=== PATIENT | male | born 1965 | race Caucasian/White ===

== ENCOUNTER 2019-10-25 13:14 | Inpatient (IN) | payer OTHER ==
--- NOTE | 2019-10-25 16:36 | BHS.RME ---
Substance Use & Tx History - Substance Use History Opiates (Heroin) Substance amount: 8-10 bags Frequency of use: Daily Substance route: Injection (ex: intravenous or skin popping) Date of Last Use: 10/24/19 ( 8 pm) Cocaine (Powder) Substance amount: 5-6 bags Frequency of use: Daily Substance route: Injection (ex: intravenous or skin popping) - Last Treatment Treatment type: Substance Use Disorder ([facility]) Where was last treatment: [facility] ([facility]) Physical/Psych/Mental Status - Behavior Eye Contact: Normal - Cooperativeness Cooperativeness: Cooperative - Physical Health Problems Is patient presently having any pain?: Yes (Body pain r/t withdrawal) Does patient presently have any injuries (include location): No Does patient currently have a fever: No COWS - Scale Resting Pulse: 1= [place] 81-100 Sweatin=Flushed/Facial Moisture Restless Observation: 1= Difficult to Sit Still Pupil Size: 2= Moderately Dilated (Pupils = 3 mm) Bone or Joint Aches: 2= Severe Diffuse Aches Runny Nose/ Eye Tearin= Nasal Congestion GI Upset > 30mins: 2= Nausea/Diarrhea (w/o diarrhea) Tremor Observation: 2= Slight Tremor Visible Yawning Observation: 0= None Anxiety or Irritability: 1=Feels Anxious/Irritable Goose Flesh Skin: 0=Smooth Skin COWS Score: 14
[2019-10-25 16:57] VITALS: BMI 22.2
--- NOTE | 2019-10-25 17:24 | HP ---
COWS - Scale Resting Pulse: 1= [place] 81-100 Sweatin=Flushed/Facial Moisture Restless Observation: 1= Difficult to Sit Still Pupil Size: 2= Moderately Dilated (Pupils = 3 mm) Bone or Joint Aches: 2= Severe Diffuse Aches Runny Nose/ Eye Tearin= Nasal Congestion GI Upset > 30mins: 2= Nausea/Diarrhea (w/o diarrhea) Tremor Observation: 2= Slight Tremor Visible Yawning Observation: 0= None Anxiety or Irritability: 1=Feels Anxious/Irritable Goose Flesh Skin: 0=Smooth Skin COWS Score: 14 CIWA Score - Admission Criteria [facility] Guidelines: Admission for Medically Managed Detox: Requires at least one of the followin. CIWA greater than 12 2. Seizures within the past 24 hours 3. Delirium tremens within the past 24 hours 4. Hallucinations within the past 24 hours 5. Acute intervention needed for co occurring medical disorder 6. Acute intervention needed for co occurring psychiatric disorder 7. Severe withdrawal that cannot be handled at a lower level of care (continued vomiting, continued diarrhea, abnormal vital signs) requiring intravenous medication and/or fluids 8. Admitting History and Physical - Admission Chief Complaint: HEROIN/MAIDA WITHDRAWAL SX History of Present Illness: THIS IS PATIENT'S FIRST TIME ADMISSION TO [facility]. HE PRESENTS WITH HEROIN/MAIDA WITHDRAWAL SX. PATIENT STARTED INJECTING HEROIN/MAIDA AT AGE 19, 18 BAGS DAILY. LAST USE LAST NIGHT. PATIENT DENIES HX SEIZURES, OVERDOSE AND BLACKOUTS. PMH INCLUDES HTN, HIV + (1985)-NONCOMPLIANT WITH TREATMENT (3 WEEKS AGO) AND HEP C ( TREATED). PATIENT DENIES HX OF MENTAL ILLNESS, NO SI/HI OR SUICIDE ATTEMPTS REPORTED. NEGATIVE LEGAL HX. HOUSING, LIVES ALONE IN [place], [place]. History Source: Patient Limitations to Obtaining History: No Limitations - Past Medical History Cardiovascular: Yes: HTN Infectious Disease: Yes: HIV, Other (HEP C (TREATED)) - Past Surgical History Past Surgical History: Yes: None - Smoking History Smoking history: Current every day smoker Have you smoked in the past 12 months: Yes Aproximately how many cigarettes per day: 8 - Alcohol/Substance Use Hx Alcohol Use: No History of Substance Use: reports: Cocaine, Heroin Date of Last Use: 10/24/19 - Social History Usual Living Arrangement: Yes: Alone Do you think of yourself as: Declined to answer ADL: Independent History of Recent Travel: No Admission ROS [facility] Chief Complaint: HEROIN/MAIDA WITHDRAWAL SX Allergies/Adverse Reactions: Allergies Allergy/AdvReac Type Severity Reaction Status Date / Time No Known Allergies Allergy Verified 10/25/19 16:40 History of Present Illness: SEE PREVIOUS PAGE Exam Limitations: No Limitations - Ebola screening Have you traveled outside of the country in the last 21 days: No Have you had contact with anyone from an Ebola affected area: No Have you been sick,other than usual withdrawal symptoms: No Do you have a fever: No - Review of Systems Constitutional: Chills, Unintentional Wgt. Loss EENT: reports: Tearing, Nose Congestion Respiratory: reports: Cough (DRY, INTERMITTENT COUGH) Cardiac: reports: No Symptoms Reported GI: reports: Nausea, Poor Appetite, Poor Fluid Intake, Abdominal cramping : reports: No Symptoms Reported Musculoskeletal: reports: Joint Pain, Muscle Pain Integumentary: reports: Sweating Neuro: reports: Headache, Tremors Endocrine: reports: Unexplained Weight Loss Hematology: reports: No Symptoms Reported Psychiatric: reports: Orientated x3, Anxious Patient History - Patient Medical History Hx Anemia: No Hx Asthma: No Hx Chronic Obstructive Pulmonary Disease (COPD): No Hx Cancer: No Hx Cardiac Disorders: No Hx Congestive Heart Failure: No Hx Hypertension: Yes Hx Hypercholesterolemia: No Hx Pacemaker: No HX Cerebrovascular Accident: No Hx Seizures: No Hx Dementia: No Hx Diabetes: No Hx Gastrointestinal Disorders: No Hx Liver Disease: No Hx Genitourinary Disorders: No Hx Sexually Transmitted Disorders: No Hx Renal Disease (ESRD): No Hx Thyroid Disease: No Hx Human Immunodeficiency Virus (HIV): Yes (NONCOMPLIANT) Hx Hepatitis C: Yes (TREATED) Hx Depression: No Hx Suicide Attempt: No Hx Bipolar Disorder: No Hx Schizophrenia: No - Patient Surgical History Past Surgical History: No Anesthesia Reaction: No - PPD History Previous Implant?: Yes Documented Results: Negative w/o proof Implanted On Prior [facility] Admission?: No PPD to be Administered?: Yes - Smoking Cessation Smoking history: Current every day smoker Have you smoked in the past 12 months: Yes Aproximately how many cigarettes per day: 8 Hx Chewing Tobacco Use: No Initiated information on smoking cessation: Yes 'Breaking Loose' booklet given: 10/25/19 - Substance & Tx. History Hx Alcohol Use: No Hx Substance Use: Yes Substance Use Type: Cocaine, Heroin Hx Substance Use Treatment: Yes - Substances abused Heroin Substance route: Injection Frequency: Daily Amount used: 10 BAGS Age of first use: 19 Date of last use: 10/24/19 Cocaine Substance route: Injection Frequency: Daily Amount used: 6 BAGS Age of first use: 19 Date of last use: 10/24/19 Admission Physical Exam [facility] - Vital Signs Vital Signs: Vital Signs - 24 hr 10/25/19 16:55 Temperature 98.1 F Pulse Rate 83 Respiratory 20 Rate Blood Pressure 180/87 H - Physical General Appearance: Yes: Disheveled, Thin, Tremorous, Sweating, Anxious HEENTM: Yes: EOMI, Hearing grossly Normal, Normocephalic, Normal Voice, KATHY, Pharynx Normal, Nasal Congestion Respiratory: Yes: Chest Non-Tender, Lungs Clear, Normal Breath Sounds, No Respiratory Distress, No Accessory Muscle Use Neck: Yes: No masses,lesions,Nodules, Supple, Trachea in good position Breast: Yes: Breast Exam Deferred Cardiology: Yes: Regular Rhythm, Regular Rate, S1, S2, Other (REPEAT BP DONE MANUALLY AND 164/82) Abdominal: Yes: Normal Bowel Sounds, Non Tender, Soft Genitourinary: Yes: Within Normal Limits Back: Yes: Normal Inspection, Muscle Spasm Musculoskeletal: Yes: full range of Motion, Gait Steady, Back pain, Muscle Pain Extremities: Yes: Normal Inspection, Normal Range of Motion, Non-Tender, Tremors Neurological: Yes: coating machine operator II-XII NML intact, Fully Oriented, Alert, Motor Strength 5/5, Normal Response, Numbness, Other (ANXIOUS) Integumentary: Yes: Normal Color, Warm, Moist Lymphatic: Yes: Within Normal Limits - Diagnostic (1) Opioid dependence with withdrawal Current Visit: Yes Status: Acute (2) Cocaine dependence Current Visit: Yes Status: Chronic Qualifiers: Substance use status: uncomplicated Qualified Code(s): F14.20 - Cocaine dependence, uncomplicated (3) HTN (hypertension) Current Visit: Yes Status: Chronic Qualifiers: Hypertension type: unspecified Qualified Code(s): I10 - Essential (primary ) hypertension (4) HIV positive Current Visit: Yes Status: Chronic Cleared for Admission [facility] - Detox or Rehab [facility] Level of Care: Medically Managed Detox Regimen/Protocol: Methadone Breathalyzer - Breathalyzer Breathalyzer: 0 Urine Drug Screen - Test Device Lot number: [id number] Expiration date: 07/31/21 - Control Is test valid?: Yes - Results Drug screen NEGATIVE: No Urine drug screen results: MAIDA-Cocaine, MOP-Opiates Inpatient Rehab Admission - Rehab Decision to Admit Inpatient rehab admission?: No
[2019-10-25] MEDS ORDERED: guaiFENesin 200 MG/10 ML 10 ML UNIT-DOSE CUPS PO PRN (17:40)
[2019-10-25] MEDS ORDERED: NALOXONE HCL 0.4 MG/ML VIAL IM PRN (17:40)
[2019-10-25] MEDS ORDERED: P-EPHED 60MG/TRIPROLIDI 2.5MG TABLET PO PRN (17:40)
[2019-10-25] MEDS ORDERED: MENTHOL/PHENOL 1 EACH UD MM PRN (17:40)
[2019-10-25] MEDS ORDERED: BISMUTH SUBSALICYLATE 524 MG/30 ML UD PO PRN (17:40)
[2019-10-25] MEDS ORDERED: NICOTINE POLACRILEX 2 MG GUM BUC PRN (17:40)
[2019-10-25] MEDS ORDERED: MAGNESIUM HYDROX 2400MG/30ML ORAL SUSPENSION 30 ML CUP PO PRN (17:40)
[2019-10-25] MEDS ORDERED: ONDANSETRON *ODT* 4 MG TABLET SL PRN (17:40)
[2019-10-25] MEDS ORDERED: ACETAMINOPHEN 325 MG TABLET (FP) PO PRN ×2 (17:40)
[2019-10-25] MEDS ORDERED: MAGNESIUM CITRATE 300 ML BOTTLE PO PRN (17:40)
[2019-10-25] MEDS ORDERED: hydrOXYzine PAMOATE 25 MG CAPSULE (FP) PO PRN (17:40)
[2019-10-25] MEDS ORDERED: MAG HYDROX/AL HYDROX/SIMETH 30 ML UNIT-DOSE CUP PO PRN (17:40)
[2019-10-25] MEDS ORDERED: METHADONE HCL 10 MG TABLET (FOR DETOX USE ONLY) PO ONE (18:00)
[2019-10-25] MEDS ORDERED: diazePAM 5 MG TABLET PO PRN (18:51)
--- NOTE | 2019-10-25 19:43 | PN ---
BHS Progress Note Note: nursing call for elevated BP since admission Vital Signs - 24 hr 10/25/19 10/25/19 16:55 19:35 Temperature 98.1 F 98.3 F Pulse Rate 83 75 Respiratory 20 18 Rate Blood Pressure 180/87 H 182/97 H P : PRN Clonidine
[2019-10-25] MEDS: cloNIDine HCL 0.1 MG TABLET PO PRN (19:57)
[2019-10-25] MEDS: IBUPROFEN 400 MG TABLET (FP) PO PRN (20:12)
[2019-10-25] MEDS: THIAMINE HCL 100 MG TABLET (FP) PO SCH (22:22)
[2019-10-25] MEDS: MINERAL OIL/PETROLAT/WATER TOPICAL CREAM 113 GM JAR TP SCH (22:22)
[2019-10-25] MEDS: MELATONIN 5 MG TABLETS PO PRN (22:23)
[2019-10-25] MEDS: METHOCARBAMOL 500 MG TABLET PO PRN (22:23)
[2019-10-26] MEDS ORDERED: METHADONE HCL 10 MG TABLET (FOR DETOX USE ONLY) ONE (09:30)
[2019-10-26] MEDS ORDERED: METHADONE HCL 5 MG TABLET (FOR DETOX USE ONLY) ONE (09:30)
--- NOTE | 2019-10-26 09:42 | EKG ---
Test Reason : Blood Pressure : / mmHG Vent. Rate : 072 BPM Atrial Rate : 072 BPM P-R Int : 138 ms QRS Dur : 098 ms QT Int : 448 ms P-R-T Axes : 052 065 048 degrees QTc Int : 490 ms NORMAL SINUS RHYTHM VOLTAGE CRITERIA FOR LEFT VENTRICULAR HYPERTROPHY PROLONGED QT ABNORMAL ECG NO PREVIOUS ECGS AVAILABLE Confirmed by Thomas Hand MD ([id number]) on 10/26/2019 9:42:24 AM Referred By: Confirmed By:Thomas Hand MD
[2019-10-26] MEDS ORDERED: LISINOPRIL 10 MG TABLET (FP) PO SCH (10:00)
[2019-10-26] MEDS ORDERED: METHADONE (DETOX) 20 MG, METHADONE (DETOX) 5 MG PO ONE (10:00)
[2019-10-26 10:03] LABS: HEMATOCRIT 41.6 % (35.4-49); HEMOGLOBIN 14.1 GM/dL (11.7-16.9); MCH 31.5 pg (25.7-33.7); MCHC 33.9 g/dl (32.0-35.9); MEAN PLT VOLUME 10.3 fl (7.5-11.1); PLATELET COUNT 169 K/MM3 (134-434); RBC 4.48 M/mm3 (4.00-5.60); RDW 14.1 % (11.9-15.9); WHITE BLOOD COUNT 4.7 K/mm3 (4.0-10.0)
[2019-10-26 10:14] LABS: ALBUMIN 3.1 g/dl (3.4-5.0); BILIRUBIN,TOTAL 0.2 mg/dL (0.2-1); BLOOD UREA NITROGEN 13.9 mg/dL (7-18); CALCIUM 8.8 mg/dL (8.5-10.1); CREATININE 0.8 mg/dL (0.55-1.3); POTASSIUM 3.7 mmol/L (3.5-5.1); TOT PROT 6.5 g/dl (6.4-8.2)
[2019-10-26] MEDS: MINERAL OIL/PETROLAT/WATER TOPICAL CREAM 113 GM JAR TP SCH ×2 (10:18→22:28)
[2019-10-26] MEDS: PRENATAL VITAMINS W/ FOLIC ACID TABLET (FP) PO SCH (10:18)
[2019-10-26] MEDS: NICOTINE 14 MG/24 HOURS TOPICAL PATCH TD SCH (10:19)
[2019-10-26] MEDS: IBUPROFEN 400 MG TABLET (FP) PO PRN ×2 (10:21→22:27)
[2019-10-26] MEDS ORDERED: FLU VACCINE QUAD 60 MCG/0.5 ML (MDV 19-20) IM ONE (12:00)
--- NOTE | 2019-10-26 13:27 | PN ---
BHS COWS - Scale Resting Pulse: 0= [place] 80 or Below Sweatin= Chills/Flushing Restless Observation: 0= Sits Still Pupil Size: 1= Pupils >than Normal Bone or Joint Aches: 1= Mild Discomfort Runny Nose/ Eye Tearin= Nasal Congestion GI Upset > 30mins: 1= Stomach Cramp Tremor Observation of Outstretched Hands: 1= Tremor [place], Not Seen Yawning Observation: 0= None Anxiety or Irritability: 2=Irritable/Anxious Goose Flesh Skin: 3=Piloerection COWS Score: 11 BHS Progress Note (SOAP) Subjective: 54 years old male admitted on 10/25/19 for opiate withdrawal sx management treating with methadone detox regiment reports long history of hypertension taking unknown medication begin lisinopril 10 mg po od increased to bid addition to amlodipine 5 mg po daily patient reports that he is HIV and taking Genvoya junior underwriter call [phone] taking Genvoya since 05/2018 last filled 09/13/19 according to the preferred pharmacist that different prescribers through out the years encourage the patient return to primary care infectious disease provider for continuity of care qtc 490 discontinue zofran Objective: 10/26/19 15:47 Vital Signs Temperature 96.2 F L 10/26/19 15:01 Pulse Rate 64 10/26/19 15:01 Respiratory Rate 18 10/26/19 15:01 Blood Pressure 141/82 10/26/19 15:01 O2 Sat by Pulse Oximetry (%) Laboratory Last Values WBC 4.7 K/mm3 (4.0-10.0) 10/26/19 07:30 RBC 4.48 M/mm3 (4.00-5.60) 10/26/19 07:30 Hgb 14.1 GM/dL (11.7-16.9) 10/26/19 07:30 Hct 41.6 % (35.4-49) 10/26/19 07:30 MCV 93.0 fl (80-96) 10/26/19 07:30 MCH 31.5 pg (25.7-33.7) 10/26/19 07:30 MCHC 33.9 g/dl (32.0-35.9) 10/26/19 07:30 RDW 14.1 % (11.9-15.9) 10/26/19 07:30 Plt Count 169 K/MM3 (134-434) 10/26/19 07:30 MPV 10.3 fl (7.5-11.1) 10/26/19 07:30 Sodium 143 mmol/L (136-145) 10/26/19 07:30 Potassium 3.7 mmol/L (3.5-5.1) 10/26/19 07:30 Chloride 108 mmol/L (98-107) H 10/26/19 07:30 Carbon Dioxide 27 mmol/L (21-32) 10/26/19 07:30 Anion Gap 7 MMOL/L (8-16) L 10/26/19 07:30 BUN 13.9 mg/dL (7-18) 10/26/19 07:30 Creatinine 0.8 mg/dL (0.55-1.3) 10/26/19 07:30 Est GFR (CKD-EPI)AfAm 118.20 10/26/19 07:30 Est GFR (CKD-EPI)NonAf 101.99 10/26/19 07:30 Random Glucose 156 mg/dL (74-106) H 10/26/19 07:30 Calcium 8.8 mg/dL (8.5-10.1) 10/26/19 07:30 Total Bilirubin 0.2 mg/dL (0.2-1) 10/26/19 07:30 AST 21 U/L (15-37) 10/26/19 07:30 ALT 30 U/L (13-61) 10/26/19 07:30 Alkaline Phosphatase 107 U/L (45-117) 10/26/19 07:30 Total Protein 6.5 g/dl (6.4-8.2) 10/26/19 07:30 Albumin 3.1 g/dl (3.4-5.0) L 10/26/19 07:30 RPR Titer Nonreactive (NONREACTIVE) 10/26/19 07:30 lab noted fasting glucose 10/26/19 15:48 bp elevation begin amlodipine and increase lisinopril Assessment: 10/26/19 15:49 opiate withdrawal 10/26/19 15:49 Plan: methadone regiment
[2019-10-26] MEDS: cloNIDine HCL 0.1 MG TABLET PO PRN (13:36)
[2019-10-26] MEDS ORDERED: cloNIDine HCL 0.1 MG TABLET PO PRN (14:56)
[2019-10-26] MEDS: amLODIPine BESYLATE 5 MG TABLET (FP) PO SCH (17:04)
[2019-10-26] MEDS: THIAMINE HCL 100 MG TABLET (FP) PO SCH (22:18)
[2019-10-26] MEDS: LISINOPRIL 10 MG TABLET (FP) PO SCH (22:18)
[2019-10-26] MEDS: MELATONIN 5 MG TABLETS PO PRN (22:20)
[2019-10-27] MEDS ORDERED: METHADONE HCL 10 MG TABLET (FOR DETOX USE ONLY) PO ONE (10:00)
[2019-10-27] MEDS: PRENATAL VITAMINS W/ FOLIC ACID TABLET (FP) PO SCH (10:20)
[2019-10-27] MEDS: MINERAL OIL/PETROLAT/WATER TOPICAL CREAM 113 GM JAR TP SCH ×2 (10:20→22:17)
[2019-10-27] MEDS: LISINOPRIL 10 MG TABLET (FP) PO SCH ×2 (10:20→22:15)
[2019-10-27] MEDS: IBUPROFEN 400 MG TABLET (FP) PO PRN ×2 (10:22→22:16)
[2019-10-27] MEDS: NICOTINE 14 MG/24 HOURS TOPICAL PATCH TD SCH (10:23)
[2019-10-27] MEDS: amLODIPine BESYLATE 5 MG TABLET (FP) PO SCH (15:34)
--- NOTE | 2019-10-27 15:53 | PN ---
BHS COWS - Scale Resting Pulse: 0= [place] 80 or Below Sweatin= Chills/Flushing Restless Observation: 0= Sits Still Pupil Size: 1= Pupils >than Normal Bone or Joint Aches: 1= Mild Discomfort Runny Nose/ Eye Tearin= Nasal Congestion GI Upset > 30mins: 1= Stomach Cramp Tremor Observation of Outstretched Hands: 2= Slight Tremor Visible Yawning Observation: 0= None Anxiety or Irritability: 2=Irritable/Anxious Goose Flesh Skin: 0=Smooth Skin COWS Score: 9 BHS Progress Note (SOAP) Subjective: 54 years old male admitted on 10/25/19 for opiate withdrawal sx management treating with methadone detox regiment requests ensure for nutrition supplement Objective: 10/27/19 15:53 Vital Signs Temperature 97.6 F 10/27/19 12:37 Pulse Rate 64 10/27/19 12:37 Respiratory Rate 18 10/27/19 12:37 Blood Pressure 129/71 10/27/19 12:37 O2 Sat by Pulse Oximetry (%) Laboratory Last Values WBC 4.7 K/mm3 (4.0-10.0) 10/26/19 07:30 RBC 4.48 M/mm3 (4.00-5.60) 10/26/19 07:30 Hgb 14.1 GM/dL (11.7-16.9) 10/26/19 07:30 Hct 41.6 % (35.4-49) 10/26/19 07:30 MCV 93.0 fl (80-96) 10/26/19 07:30 MCH 31.5 pg (25.7-33.7) 10/26/19 07:30 MCHC 33.9 g/dl (32.0-35.9) 10/26/19 07:30 RDW 14.1 % (11.9-15.9) 10/26/19 07:30 Plt Count 169 K/MM3 (134-434) 10/26/19 07:30 MPV 10.3 fl (7.5-11.1) 10/26/19 07:30 Sodium 143 mmol/L (136-145) 10/26/19 07:30 Potassium 3.7 mmol/L (3.5-5.1) 10/26/19 07:30 Chloride 108 mmol/L (98-107) H 10/26/19 07:30 Carbon Dioxide 27 mmol/L (21-32) 10/26/19 07:30 Anion Gap 7 MMOL/L (8-16) L 10/26/19 07:30 BUN 13.9 mg/dL (7-18) 10/26/19 07:30 Creatinine 0.8 mg/dL (0.55-1.3) 10/26/19 07:30 Est GFR (CKD-EPI)AfAm 118.20 10/26/19 07:30 Est GFR (CKD-EPI)NonAf 101.99 10/26/19 07:30 Random Glucose 156 mg/dL (74-106) H 10/26/19 07:30 Fasting Glucose 111 mg/dL (74-106) H 10/27/19 08:00 Calcium 8.8 mg/dL (8.5-10.1) 10/26/19 07:30 Total Bilirubin 0.2 mg/dL (0.2-1) 10/26/19 07:30 AST 21 U/L (15-37) 10/26/19 07:30 ALT 30 U/L (13-61) 10/26/19 07:30 Alkaline Phosphatase 107 U/L (45-117) 10/26/19 07:30 Total Protein 6.5 g/dl (6.4-8.2) 10/26/19 07:30 Albumin 3.1 g/dl (3.4-5.0) L 10/26/19 07:30 RPR Titer Nonreactive (NONREACTIVE) 10/26/19 07:30 lab noted Assessment: 10/27/19 15:53 opiate withdrawal Plan: methadone regiment
[2019-10-27] MEDS: THIAMINE HCL 100 MG TABLET (FP) PO SCH (22:15)
[2019-10-27] MEDS: MELATONIN 5 MG TABLETS PO PRN (22:17)
[2019-10-28] MEDS ORDERED: METHADONE HCL 10 MG TABLET (FOR DETOX USE ONLY) ONE (09:33)
[2019-10-28] MEDS ORDERED: METHADONE HCL 5 MG TABLET (FOR DETOX USE ONLY) ONE (09:34)
[2019-10-28] MEDS ORDERED: METHADONE (DETOX) 10 MG, METHADONE (DETOX) 5 MG PO ONE (10:00)
[2019-10-28] MEDS: METHOCARBAMOL 500 MG TABLET PO PRN ×2 (10:09→22:12)
[2019-10-28] MEDS: PRENATAL VITAMINS W/ FOLIC ACID TABLET (FP) PO SCH (10:09)
[2019-10-28] MEDS: LISINOPRIL 10 MG TABLET (FP) PO SCH ×2 (10:09→22:11)
[2019-10-28] MEDS: NICOTINE 14 MG/24 HOURS TOPICAL PATCH TD SCH (10:10)
[2019-10-28] MEDS: MINERAL OIL/PETROLAT/WATER TOPICAL CREAM 113 GM JAR TP SCH ×2 (10:10→22:11)
[2019-10-28] MEDS: IBUPROFEN 400 MG TABLET (FP) PO PRN ×2 (10:11→18:11)
[2019-10-28] MEDS ORDERED: amLODIPine BESYLATE 10 MG TABLET (FP) PO ONE (15:27)
--- NOTE | 2019-10-28 15:29 | PN ---
BHS COWS - Scale Resting Pulse: 0= [place] 80 or Below Sweatin= Chills/Flushing Restless Observation: 0= Sits Still Pupil Size: 1= Pupils >than Normal Bone or Joint Aches: 1= Mild Discomfort Runny Nose/ Eye Tearin= Nasal Congestion GI Upset > 30mins: 0= None Tremor Observation of Outstretched Hands: 1= Tremor [place], Not Seen Yawning Observation: 0= None Anxiety or Irritability: 2=Irritable/Anxious Goose Flesh Skin: 0=Smooth Skin COWS Score: 7 BHS Progress Note (SOAP) Subjective: 54 years old male admitted on 10/25/19 for opiate withdrawal sx management treating with methadone detox regiment Vital Signs Temperature 97.0 F L 10/28/19 12:35 Pulse Rate 66 10/28/19 12:35 Respiratory Rate 18 10/28/19 12:35 Blood Pressure 140/75 10/28/19 12:35 O2 Sat by Pulse Oximetry (%) bp elevation increase amlodipine to 10 mg po daily and continue lisinopril 10 mg po bid Objective: 10/28/19 15:30opiate withdrawal Laboratory Last Values WBC 4.7 K/mm3 (4.0-10.0) 10/26/19 07:30 RBC 4.48 M/mm3 (4.00-5.60) 10/26/19 07:30 Hgb 14.1 GM/dL (11.7-16.9) 10/26/19 07:30 Hct 41.6 % (35.4-49) 10/26/19 07:30 MCV 93.0 fl (80-96) 10/26/19 07:30 MCH 31.5 pg (25.7-33.7) 10/26/19 07:30 MCHC 33.9 g/dl (32.0-35.9) 10/26/19 07:30 RDW 14.1 % (11.9-15.9) 10/26/19 07:30 Plt Count 169 K/MM3 (134-434) 10/26/19 07:30 MPV 10.3 fl (7.5-11.1) 10/26/19 07:30 Sodium 143 mmol/L (136-145) 10/26/19 07:30 Potassium 3.7 mmol/L (3.5-5.1) 10/26/19 07:30 Chloride 108 mmol/L (98-107) H 10/26/19 07:30 Carbon Dioxide 27 mmol/L (21-32) 10/26/19 07:30 Anion Gap 7 MMOL/L (8-16) L 10/26/19 07:30 BUN 13.9 mg/dL (7-18) 10/26/19 07:30 Creatinine 0.8 mg/dL (0.55-1.3) 10/26/19 07:30 Est GFR (CKD-EPI)AfAm 118.20 10/26/19 07:30 Est GFR (CKD-EPI)NonAf 101.99 10/26/19 07:30 Random Glucose 156 mg/dL (74-106) H 10/26/19 07:30 Fasting Glucose 111 mg/dL (74-106) H 10/27/19 08:00 Calcium 8.8 mg/dL (8.5-10.1) 10/26/19 07:30 Total Bilirubin 0.2 mg/dL (0.2-1) 10/26/19 07:30 AST 21 U/L (15-37) 10/26/19 07:30 ALT 30 U/L (13-61) 10/26/19 07:30 Alkaline Phosphatase 107 U/L (45-117) 10/26/19 07:30 Total Protein 6.5 g/dl (6.4-8.2) 10/26/19 07:30 Albumin 3.1 g/dl (3.4-5.0) L 10/26/19 07:30 RPR Titer Nonreactive (NONREACTIVE) 10/26/19 07:30 lab noted Assessment: 10/28/19 15:31 opiate withdrawal Plan: methadone regiment
[2019-10-28] MEDS: amLODIPine BESYLATE 5 MG TABLET (FP) PO SCH (15:46)
--- NOTE | 2019-10-28 17:57 | PN ---
S Progress Note Note: call form nursing re: elevated BP Vital Signs - 24 hr 10/27/19 10/28/19 10/28/19 21:30 00:42 03:30 Temperature 97.4 F L Pulse Rate 69 Respiratory 18 18 16 Rate Blood Pressure 169/93 10/28/19 10/28/19 10/28/19 06:34 08:41 12:35 Temperature 97.5 F L 97.7 F 97.0 F L Pulse Rate 58 L 68 66 Respiratory 18 18 18 Rate Blood Pressure 152/82 161/77 140/75 10/28/19 16:47 Temperature 98.1 F Pulse Rate 68 Respiratory 17 Rate Blood Pressure 165/89 P : Clonidine 0.1 mg x once
[2019-10-28] MEDS ORDERED: cloNIDine HCL 0.1 MG TABLET PO ONE (18:15)
[2019-10-28] MEDS: THIAMINE HCL 100 MG TABLET (FP) PO SCH (22:11)
[2019-10-28] MEDS: MELATONIN 5 MG TABLETS PO PRN (22:11)
[2019-10-29] MEDS: METHOCARBAMOL 500 MG TABLET PO PRN ×2 (09:42→22:13)
[2019-10-29] MEDS: LISINOPRIL 10 MG TABLET (FP) PO SCH ×2 (09:42→22:12)
[2019-10-29] MEDS: PRENATAL VITAMINS W/ FOLIC ACID TABLET (FP) PO SCH (09:42)
[2019-10-29] MEDS: MINERAL OIL/PETROLAT/WATER TOPICAL CREAM 113 GM JAR TP SCH ×2 (09:43→22:12)
[2019-10-29] MEDS: IBUPROFEN 400 MG TABLET (FP) PO PRN (09:43)
[2019-10-29] MEDS: NICOTINE 14 MG/24 HOURS TOPICAL PATCH TD SCH (09:45)
[2019-10-29] MEDS ORDERED: METHADONE HCL 10 MG TABLET (FOR DETOX USE ONLY) PO ONE (10:00)
--- NOTE | 2019-10-29 10:40 | PN ---
S CIWA - CIWA Score Agitation: 2 Paroxysmal Sweats: 2 BHS COWS - Scale Resting Pulse: 0= [place] 80 or Below Sweatin=Flushed/Facial Moisture Restless Observation: 0= Sits Still Pupil Size: 0= Normal to Room Light Bone or Joint Aches: 1= Mild Discomfort Runny Nose/ Eye Tearin= None GI Upset > 30mins: 0= None Tremor Observation of Outstretched Hands: 0= None Yawning Observation: 0= None Anxiety or Irritability: 1=Feels Anxious/Irritable Goose Flesh Skin: 0=Smooth Skin COWS Score: 4 BHS Progress Note (SOAP) Subjective: Pt complains of cough, green phlegm, right lower lid swollen Objective: 10/29/19 10:38 Laboratory Tests 10/26/19 10/26/19 10/26/19 07:30 07:30 07:30 WBC 4.7 RBC 4.48 Hgb 14.1 Hct 41.6 MCV 93.0 MCH 31.5 MCHC 33.9 RDW 14.1 Plt Count 169 MPV 10.3 Sodium 143 Potassium 3.7 Chloride 108 H Carbon Dioxide 27 Anion Gap 7 L BUN 13.9 Creatinine 0.8 Est GFR (CKD-EPI)AfAm 118.20 Est GFR (CKD-EPI)NonAf 101.99 Random Glucose 156 H Fasting Glucose Calcium 8.8 Total Bilirubin 0.2 AST 21 ALT 30 Alkaline Phosphatase 107 Total Protein 6.5 Albumin 3.1 L RPR Titer Nonreactive 10/27/19 08:00 WBC RBC Hgb Hct MCV MCH MCHC RDW Plt Count MPV Sodium Potassium Chloride Carbon Dioxide Anion Gap BUN Creatinine Est GFR (CKD-EPI)AfAm Est GFR (CKD-EPI)NonAf Random Glucose Fasting Glucose 111 H Calcium Total Bilirubin AST ALT Alkaline Phosphatase Total Protein Albumin RPR Titer Vital Signs Temperature 97.6 F 10/29/19 08:35 Pulse Rate 70 10/29/19 08:35 Respiratory Rate 18 10/29/19 08:35 Blood Pressure 127/68 10/29/19 08:35 O2 Sat by Pulse Oximetry (%) PE gnl: WDWN, in no distress HEENT: slight right lower lid redness, nl conjunctiva, no discharge Mental status: awake, alert Motor; nl Gait: nl Assessment: WBC 4.7 K/mm3 (4.0-10.0) 10/26/19 07:30 RBC 4.48 M/mm3 (4.00-5.60) 10/26/19 07:30 Hgb 14.1 GM/dL (11.7-16.9) 10/26/19 07:30 Hct 41.6 % (35.4-49) 10/26/19 07:30 MCV 93.0 fl (80-96) 10/26/19 07:30 MCH 31.5 pg (25.7-33.7) 10/26/19 07:30 MCHC 33.9 g/dl ( 10/29/19 10:42 1. Opoid use disorder 2. HIV positive 3. Hep c tx 4. mild errythema right lower llid, no sign of infection 5. complaints of cough Plan: 1. continue methadone withdrawal protocol 2. warm compress to right eye/lid 3. Robitussin prn
[2019-10-29 11:21] LABS: URINE APPEARANCE CLEAR; URINE BILIRUBIN NEGATIVE (NEGATIVE); URINE COLOR YELLOW; URINE GLUCOSE (UA) NEGATIVE (NEGATIVE); URINE KETONE NEGATIVE (NEGATIVE); URINE LEUK ESTERASE NEGATIVE (NEGATIVE); URINE NITRITE NEGATIVE (NEGATIVE); URINE PROTEIN NEGATIVE (NEGATIVE); URINE UROBILINOGEN 0.2 mg/dL (0.2-1.0)
[2019-10-29] MEDS: amLODIPine BESYLATE 10 MG TABLET (FP) PO SCH (16:37)
[2019-10-29] MEDS: THIAMINE HCL 100 MG TABLET (FP) PO SCH (22:12)
[2019-10-29] MEDS: MELATONIN 5 MG TABLETS PO PRN (22:12)
[2019-10-30] MEDS ORDERED: METHADONE HCL 5 MG TABLET (FOR DETOX USE ONLY) PO ONE (06:00)
[2019-10-30] MEDS: NICOTINE 14 MG/24 HOURS TOPICAL PATCH TD SCH (10:51)
[2019-10-30] MEDS: LISINOPRIL 10 MG TABLET (FP) PO SCH (10:52)
[2019-10-30] MEDS: PRENATAL VITAMINS W/ FOLIC ACID TABLET (FP) PO SCH (10:52)
[2019-10-30] MEDS: MINERAL OIL/PETROLAT/WATER TOPICAL CREAM 113 GM JAR TP SCH (10:53)
[2019-10-30] MEDS: IBUPROFEN 400 MG TABLET (FP) PO PRN (10:54)
--- NOTE | 2019-10-30 13:57 | PN ---
BHS COWS - Scale Resting Pulse: 0= [place] 80 or Below Sweatin= No chills or Flushing Restless Observation: 0= Sits Still Pupil Size: 0= Normal to Room Light Bone or Joint Aches: 1= Mild Discomfort Runny Nose/ Eye Tearin= None GI Upset > 30mins: 0= None Tremor Observation of Outstretched Hands: 0= None Yawning Observation: 0= None Anxiety or Irritability: 1=Feels Anxious/Irritable Goose Flesh Skin: 0=Smooth Skin COWS Score: 2 BHS Progress Note (SOAP) Subjective: c/o mild withdrawal symptoms. Objective: 10/30/19 13:53 Vital Signs 10/30/19 10/30/19 10/30/19 06:57 08:40 12:32 Temperature 97.3 F L 98.5 F 98.8 F Pulse Rate 65 73 74 Respiratory 16 18 18 Rate Blood Pressure 136/76 150/76 150/83 Laboratory Last Values WBC 4.7 K/mm3 (4.0-10.0) 10/26/19 07:30 RBC 4.48 M/mm3 (4.00-5.60) 10/26/19 07:30 Hgb 14.1 GM/dL (11.7-16.9) 10/26/19 07:30 Hct 41.6 % (35.4-49) 10/26/19 07:30 MCV 93.0 fl (80-96) 10/26/19 07:30 MCH 31.5 pg (25.7-33.7) 10/26/19 07:30 MCHC 33.9 g/dl (32.0-35.9) 10/26/19 07:30 RDW 14.1 % (11.9-15.9) 10/26/19 07:30 Plt Count 169 K/MM3 (134-434) 10/26/19 07:30 MPV 10.3 fl (7.5-11.1) 10/26/19 07:30 Sodium 143 mmol/L (136-145) 10/26/19 07:30 Potassium 3.7 mmol/L (3.5-5.1) 10/26/19 07:30 Chloride 108 mmol/L (98-107) H 10/26/19 07:30 Carbon Dioxide 27 mmol/L (21-32) 10/26/19 07:30 Anion Gap 7 MMOL/L (8-16) L 10/26/19 07:30 BUN 13.9 mg/dL (7-18) 10/26/19 07:30 Creatinine 0.8 mg/dL (0.55-1.3) 10/26/19 07:30 Est GFR (CKD-EPI)AfAm 118.20 10/26/19 07:30 Est GFR (CKD-EPI)NonAf 101.99 10/26/19 07:30 Random Glucose 156 mg/dL (74-106) H 10/26/19 07:30 Fasting Glucose 111 mg/dL (74-106) H 10/27/19 08:00 Calcium 8.8 mg/dL (8.5-10.1) 10/26/19 07:30 Total Bilirubin 0.2 mg/dL (0.2-1) 10/26/19 07:30 AST 21 U/L (15-37) 10/26/19 07:30 ALT 30 U/L (13-61) 10/26/19 07:30 Alkaline Phosphatase 107 U/L (45-117) 10/26/19 07:30 Total Protein 6.5 g/dl (6.4-8.2) 10/26/19 07:30 Albumin 3.1 g/dl (3.4-5.0) L 10/26/19 07:30 Urine Color Yellow 10/29/19 08:00 Urine Appearance Clear 10/29/19 08:00 Urine pH 7.0 (5.0-8.0) 10/29/19 08:00 Ur Specific [place] 1.013 (1.010-1.035) 10/29/19 08:00 Urine Protein Negative (NEGATIVE) 10/29/19 08:00 Urine Glucose (UA) Negative (NEGATIVE) 10/29/19 08:00 Urine Ketones Negative (NEGATIVE) 10/29/19 08:00 Urine Blood Negative (NEGATIVE) 10/29/19 08:00 Urine Nitrite Negative (NEGATIVE) 10/29/19 08:00 Urine Bilirubin Negative (NEGATIVE) 10/29/19 08:00 Urine Urobilinogen 0.2 mg/dL (0.2-1.0) 10/29/19 08:00 Ur Leukocyte Esterase Negative (NEGATIVE) 10/29/19 08:00 RPR Titer Nonreactive (NONREACTIVE) 10/26/19 07:30 Labs noted. Assessment: 10/30/19 13:53 AOX3 in no acute respiratory distress. Full ROM, ambulating in the unit. Mild withdrawal symptoms. Pt's discharge has been put on hold for tomorrow for bed availability in [facility]. Case discussed with counselor Denise. Plan: Continue prn meds. D/C in AM to Rehab.
[2019-10-30] MEDS: amLODIPine BESYLATE 10 MG TABLET (FP) PO SCH (16:03)
[2019-10-30 17:20] VITALS: BP 122/65; PULSE 71; TEMP 97.9
--- NOTE | 2019-10-30 19:57 | DS ---
[facility] Detox Discharge Summary Admission Date: 10/25/19 Discharge Date: 10/30/19 - History Present History: Cocaine Dependence, Opioid Dependence Additional Comments: Patient was admitted seeking detox for heroin and cocaine disorder. Pertinent Past History: Hx HIV+ and non-compliant w/ treatment. Hx: HTN - Physical Exam Results Vital Signs: Vital Signs Temperature 97.9 F 10/30/19 16:34 Pulse Rate 71 10/30/19 16:34 Respiratory Rate 18 10/30/19 16:34 Blood Pressure 122/65 10/30/19 16:34 O2 Sat by Pulse Oximetry (%) Pertinent Admission Physical Exam Findings: Patient was admitted w/ opioid withdrawal symptoms w/ co-occurring cocaine and nicotine use disorder. Laboratory Last Values WBC 4.7 K/mm3 (4.0-10.0) 10/26/19 07:30 RBC 4.48 M/mm3 (4.00-5.60) 10/26/19 07:30 Hgb 14.1 GM/dL (11.7-16.9) 10/26/19 07:30 Hct 41.6 % (35.4-49) 10/26/19 07:30 MCV 93.0 fl (80-96) 10/26/19 07:30 MCH 31.5 pg (25.7-33.7) 10/26/19 07:30 MCHC 33.9 g/dl (32.0-35.9) 10/26/19 07:30 RDW 14.1 % (11.9-15.9) 10/26/19 07:30 Plt Count 169 K/MM3 (134-434) 10/26/19 07:30 MPV 10.3 fl (7.5-11.1) 10/26/19 07:30 Sodium 143 mmol/L (136-145) 10/26/19 07:30 Potassium 3.7 mmol/L (3.5-5.1) 10/26/19 07:30 Chloride 108 mmol/L (98-107) H 10/26/19 07:30 Carbon Dioxide 27 mmol/L (21-32) 10/26/19 07:30 Anion Gap 7 MMOL/L (8-16) L 10/26/19 07:30 BUN 13.9 mg/dL (7-18) 10/26/19 07:30 Creatinine 0.8 mg/dL (0.55-1.3) 10/26/19 07:30 Est GFR (CKD-EPI)AfAm 118.20 10/26/19 07:30 Est GFR (CKD-EPI)NonAf 101.99 10/26/19 07:30 Random Glucose 156 mg/dL (74-106) H 10/26/19 07:30 Fasting Glucose 111 mg/dL (74-106) H 10/27/19 08:00 Calcium 8.8 mg/dL (8.5-10.1) 10/26/19 07:30 Total Bilirubin 0.2 mg/dL (0.2-1) 10/26/19 07:30 AST 21 U/L (15-37) 10/26/19 07:30 ALT 30 U/L (13-61) 10/26/19 07:30 Alkaline Phosphatase 107 U/L (45-117) 10/26/19 07:30 Total Protein 6.5 g/dl (6.4-8.2) 10/26/19 07:30 Albumin 3.1 g/dl (3.4-5.0) L 10/26/19 07:30 Urine Color Yellow 10/29/19 08:00 Urine Appearance Clear 10/29/19 08:00 Urine pH 7.0 (5.0-8.0) 10/29/19 08:00 Ur Specific [place] 1.013 (1.010-1.035) 10/29/19 08:00 Urine Protein Negative (NEGATIVE) 10/29/19 08:00 Urine Glucose (UA) Negative (NEGATIVE) 10/29/19 08:00 Urine Ketones Negative (NEGATIVE) 10/29/19 08:00 Urine Blood Negative (NEGATIVE) 10/29/19 08:00 Urine Nitrite Negative (NEGATIVE) 10/29/19 08:00 Urine Bilirubin Negative (NEGATIVE) 10/29/19 08:00 Urine Urobilinogen 0.2 mg/dL (0.2-1.0) 10/29/19 08:00 Ur Leukocyte Esterase Negative (NEGATIVE) 10/29/19 08:00 RPR Titer Nonreactive (NONREACTIVE) 10/26/19 07:30 Labs reviewed. - Treatment Hospital Course: Detox Protocol Followed, Detoxed Safely, Responded well, Discharged Condition Good, Rehab Referral Accepted (Patient requested to go to [facility] rehab.) - Medication Discharge Medications: Ambulatory Orders NK [No Known Home Medication] 10/25/19 - Diagnosis (1) Opioid dependence with withdrawal Current Visit: Yes Status: Acute (2) Cocaine dependence Current Visit: Yes Status: Chronic Qualifiers: Substance use status: uncomplicated Qualified Code(s): F14.20 - Cocaine dependence, uncomplicated (3) HIV positive Current Visit: Yes Status: Chronic (4) HTN (hypertension) Current Visit: Yes Status: Chronic Qualifiers: Hypertension type: unspecified Qualified Code(s): I10 - Essential (primary ) hypertension - AMA Did Patient Leave Against Medical Advice: No
== END 2019-10-30 19:42 | disposition other institution (70) | DRG 773 ==
LOC: YASAS 13:14 → Y3N 17:07
PROVIDERS: ADMIT Allergy & Immunology; ATTEND Allergy & Immunology
PROC: HZ2ZZZZ Detoxification Services for Substance Abuse Treatment (ICD-10-PCS; principal; 2019-10-25)
DX: F11.23 Opioid dependence with withdrawal (principal); F14.20 Cocaine dependence, uncomplicated; F17.210 Nicotine dependence, cigarettes, uncomplicated; Z21 Asymptomatic human immunodeficiency virus [HIV] infection status; I10 Essential (primary) hypertension; B18.2 Chronic viral hepatitis C; H57.89 Other specified disorders of eye and adnexa
CPT/HCPCS: 36415; 80053; 81003; 82947; 85027; 86593; 93005; 93010; J0735

== ENCOUNTER 2019-10-30 19:20 | Inpatient (IN) | payer OTHER ==
--- NOTE | 2019-10-30 20:14 | HP ---
[facility] Rehab Assess/Revision - Admission History Admitted to Rehab from: [facility] Date of Admission to Rehab: 10/30/2019 - Findings Detox History & Physical reviewed: Yes (Tolerated opioid withdrawal. Hx Cocaine and nicotine use disorder. ) Concur with findings: Yes Comments/Additional Findings: Hx: HIV+, HTN. Denies depression or thoughts of harming self or others. Inpatient Rehab Admission - Rehab Decision to Admit Inpatient rehab admission?: Yes - Initial Determination Are CD services needed?: Yes Free of communicable disease: Yes Not in need of hospitalization: Yes - Rehab Admission Criteria Previous failed treatment: Yes Poor recovery environment: Yes Comorbidities: Yes Lacks judgement: Yes Patient is meeting Inpatient Rehab admission criteria:: Yes
[2019-10-30] MEDS ORDERED: MAGNESIUM CITRATE 300 ML BOTTLE PO PRN (20:18)
[2019-10-30] MEDS ORDERED: MENTHOL/PHENOL 1 EACH UD MM PRN (20:18)
[2019-10-30] MEDS ORDERED: NICOTINE POLACRILEX 2 MG GUM BUC PRN (20:18)
[2019-10-30] MEDS ORDERED: P-EPHED 60MG/TRIPROLIDI 2.5MG TABLET PO PRN (20:18)
[2019-10-30] MEDS ORDERED: guaiFENesin 200 MG/10 ML 10 ML UNIT-DOSE CUPS PO PRN (20:18)
[2019-10-30] MEDS ORDERED: LOPERAMIDE HCL 2 MG CAPSULE PO PRN (20:18)
[2019-10-30] MEDS ORDERED: MAGNESIUM HYDROX 2400MG/30ML ORAL SUSPENSION 30 ML CUP PO PRN (20:18)
[2019-10-30] MEDS ORDERED: MAG HYDROX/AL HYDROX/SIMETH 30 ML UNIT-DOSE CUP PO PRN (20:18)
[2019-10-30] MEDS: LISINOPRIL 10 MG TABLET (FP) PO SCH (22:10)
[2019-10-30] MEDS: MELATONIN 5 MG TABLETS PO PRN (22:10)
[2019-10-30] MEDS: IBUPROFEN 400 MG TABLET (FP) PO PRN (22:10)
[2019-10-30] MEDS: THIAMINE HCL 100 MG TABLET (FP) PO SCH (22:10)
[2019-10-31] MEDS: NICOTINE 14 MG/24 HOURS TOPICAL PATCH TD SCH (09:41)
[2019-10-31] MEDS: ACETAMINOPHEN 325 MG TABLET (FP) PO PRN (09:42)
[2019-10-31] MEDS: amLODIPine BESYLATE 10 MG TABLET (FP) PO SCH (09:42)
[2019-10-31] MEDS: LISINOPRIL 10 MG TABLET (FP) PO SCH ×2 (09:42→21:05)
[2019-10-31] MEDS: PRENATAL VITAMINS W/ FOLIC ACID TABLET (FP) PO SCH (09:42)
[2019-10-31] MEDS: hydrOXYzine HCL 10 MG/5 ML LIQUID BULK BOTTLE PO PRN (21:04)
[2019-10-31] MEDS: IBUPROFEN 400 MG TABLET (FP) PO PRN (21:05)
[2019-10-31] MEDS: MELATONIN 5 MG TABLETS PO PRN (21:05)
[2019-10-31] MEDS: THIAMINE HCL 100 MG TABLET (FP) PO SCH (21:05)
[2019-11-01] MEDS: PRENATAL VITAMINS W/ FOLIC ACID TABLET (FP) PO SCH (09:58)
[2019-11-01] MEDS: amLODIPine BESYLATE 10 MG TABLET (FP) PO SCH (09:58)
[2019-11-01] MEDS: LISINOPRIL 10 MG TABLET (FP) PO SCH ×2 (09:58→21:09)
[2019-11-01] MEDS: NICOTINE 14 MG/24 HOURS TOPICAL PATCH TD SCH (09:58)
[2019-11-01] MEDS: hydrOXYzine HCL 10 MG/5 ML LIQUID BULK BOTTLE PO PRN (09:59)
[2019-11-01] MEDS: IBUPROFEN 400 MG TABLET (FP) PO PRN ×2 (10:01→21:09)
[2019-11-01] MEDS: THIAMINE HCL 100 MG TABLET (FP) PO SCH (21:09)
[2019-11-01] MEDS: hydrOXYzine PAMOATE 25 MG CAPSULE (FP) PO PRN (21:09)
[2019-11-02] MEDS: PRENATAL VITAMINS W/ FOLIC ACID TABLET (FP) PO SCH (09:36)
[2019-11-02] MEDS: IBUPROFEN 400 MG TABLET (FP) PO PRN ×2 (09:36→18:51)
[2019-11-02] MEDS: LISINOPRIL 10 MG TABLET (FP) PO SCH ×2 (09:36→21:05)
[2019-11-02] MEDS: hydrOXYzine PAMOATE 25 MG CAPSULE (FP) PO PRN (09:36)
[2019-11-02] MEDS: amLODIPine BESYLATE 10 MG TABLET (FP) PO SCH (09:36)
[2019-11-02] MEDS: NICOTINE 14 MG/24 HOURS TOPICAL PATCH TD SCH (09:38)
--- NOTE | 2019-11-02 10:50 | PN ---
[facility] Progress Note Note: Pt is a 54 y/o male with hx of ROSEANNE-Heroin,cocaine admitted to rehab from [address] [place] [address] on 10/30/19 after completing detox. PMHx:HIV+, HTN. Psych Hx:Denies. PSHx: Denies. Pt reports he has a primary care provider, Dr. Katie Smith at [facility], [place], [place]. Pt reports missed his September appointment with his doctor "because of my drug use". Pt is currently c/o w/s-joint and body aches, hot/cold sweats, jittery, low energy. Pt reports he used to be on Suboxone for one year(April 2018 to April 2019) at [facility] then stopped and got on [facility] from June 2019 to September 2019 after which relapsed and started using heavily on the street. Pt is requesting to get back on the Suboxone because "it helped me when I was on it ". Vital Signs - 24 hr 11/01/19 11/02/19 11/02/19 22:00 00:30 01:04 Temperature Pulse Rate 77 Respiratory 16 16 Rate Blood Pressure 161/102 H 11/02/19 11/02/19 03:30 07:11 Temperature 97.8 F Pulse Rate 76 Respiratory 18 18 Rate Blood Pressure 131/82 COWS- Scale Resting Pulse: 0= [place] 80 or Below Sweatin= Beads of Sweat on Face (Drenched sweat on clothing) Restless Observation: 0= Sits Still Pupil Size: 0= Normal to Room Light Bone or Joint Aches: 4=Acute Joint/Muscle Pain Runny Nose/ Eye Tearin= None GI Upset > 30mins: 0= None Tremor Observation of Outstretched Hands: 1= Tremor [place], Not Seen Yawning Observation: 0= None Anxiety or Irritability: 1=Feels Anxious/Irritable Goose Flesh Skin: 0=Smooth Skin COWS Score: 9 Alert o x 3,denies s/h/i nad oob ambulating with steady gait cardiac;s1 s2,rrr lungs;cta,gayle abdomen:+bs,soft,nt,nd extremities/Skin:no edema;skin intact but extensive old healed haynes scars, bilaterally. A/P ROSEANNE w/s s/p detox Requesting Suboxone MAT Maintain safety UDS for MAT re: s/p Methadone taper detox follow up with pt to start suboxone after UDS Pt has been referred to [facility] OPD program who will continue with his Suboxone upon discharge. pt is agreeable to poc
--- NOTE | 2019-11-02 11:12 | PN ---
[facility] COWS - Scale Resting Pulse: 0= [place] 80 or Below Sweatin= Beads of Sweat on Face (Drenched sweat on clothing) Restless Observation: 0= Sits Still Pupil Size: 0= Normal to Room Light Bone or Joint Aches: 4=Acute Joint/Muscle Pain Runny Nose/ Eye Tearin= None GI Upset > 30mins: 0= None Tremor Observation of Outstretched Hands: 1= Tremor [place], Not Seen Yawning Observation: 0= None Anxiety or Irritability: 1=Feels Anxious/Irritable Goose Flesh Skin: 0=Smooth Skin COWS Score: 9
[2019-11-02] MEDS: METHOCARBAMOL 500 MG TABLET PO PRN ×2 (11:58→21:05)
[2019-11-02] MEDS: ACETAMINOPHEN 325 MG TABLET (FP) PO PRN (11:58)
[2019-11-02] MEDS ORDERED: FLU VACCINE QUAD 60 MCG/0.5 ML (MDV 19-20) IM ONE (12:00)
[2019-11-02] MEDS: ELVITEG/COB/EMTRI/TENOF (GENVOYA) TABLET (NF) PO SCH (13:19)
--- NOTE | 2019-11-02 13:51 | CONSULT ---
[facility] Psychiatric Consult - Data Date of interview: 11/02/19 Admission source: 3N Identifying data: Jordyn Ferreira is a 54 years old single male, unemployed receiving HASA/food stamp, living in transitional housing admitted from detox for inpatient rehabilitation treatment for opioid and cocaine Substance Abuse History: Reports history of heroin and cocaine use. Refer to addiction counselor's summary for further information Medical History: Significant for HIV since 1985, hypertension, history of treatyment for hepatitis C. smoke 8 cigarettes daily Psychiatric History: Denies history of previous psychiatric treatment. However, reports feeling mildly depressed, anxious and sleeping poorly. Requests to be ordered Ambien as he reports good response historically Physical/Sexual Abuse/Trauma History: Denies history of abuse as a child or DV relationship Mental Status Exam - Mental Status Exam Alert and Oriented to: Time, Place, Person Cognitive Function: Fair Patient Appearance: Well Groomed Mood: Depressed (mildly), Anxious (mildly) Affect: Appropriate Patient Behavior: Cooperative Speech Pattern: Clear Voice Loudness: Normal Thought Process: Intact, Goal Oriented Hallucinations: Denies Suicidal Ideation: Denies Homicidal Ideation: Denies Insight/Judgement: Poor Sleep: Poorly Appetite: Good Muscle strength/Tone: Normal Gait/Station: Spastic Psychiatric Findings - Problem List ([place] 1, 2,3) (1) Substance induced mood disorder Current Visit: Yes Status: Acute (2) Substance-induced sleep disorder Current Visit: Yes Status: Acute (3) Opioid dependence Current Visit: Yes Status: Acute (4) Cocaine dependence Current Visit: Yes Status: Acute (5) Nicotine dependence Current Visit: Yes Status: Chronic (6) HIV positive Current Visit: No Status: Chronic (7) HTN (hypertension) Current Visit: No Status: Chronic Qualifiers: Hypertension type: unspecified Qualified Code(s): I10 - Essential (primary ) hypertension (8) Hepatitis C Current Visit: Yes Status: Resolved - Initial Treatment Plan Initial Treatment Plan: 1) Start Belsomra 10 mg po HS prn for insomnia. 2) continue inpatient rehabilitation
[2019-11-02] MEDS: THIAMINE HCL 100 MG TABLET (FP) PO SCH (21:04)
[2019-11-02] MEDS ORDERED: SUVOREXANT 10 MG TABLET PO PRN (22:00)
[2019-11-03 07:20] VITALS: BP 150/81; PULSE 86; TEMP 97.7
[2019-11-03] MEDS: IBUPROFEN 400 MG TABLET (FP) PO PRN (08:05)
[2019-11-03] MEDS: METHOCARBAMOL 500 MG TABLET PO PRN (08:05)
[2019-11-03] MEDS: ELVITEG/COB/EMTRI/TENOF (GENVOYA) TABLET (NF) PO SCH (09:29)
[2019-11-03] MEDS: PRENATAL VITAMINS W/ FOLIC ACID TABLET (FP) PO SCH (09:29)
[2019-11-03] MEDS: amLODIPine BESYLATE 10 MG TABLET (FP) PO SCH (09:29)
[2019-11-03] MEDS: LISINOPRIL 10 MG TABLET (FP) PO SCH (09:29)
--- NOTE | 2019-11-03 09:41 | DS ---
[facility] Rehab Discharge Summary - [facility] Rehab Discharge Summary Admission Date: 10/30/19 Discharge Date: 11/03/19 - History Present History: Cocaine dependence, Opioid dependence Additional Comments: Pt is a 54 y/o male with a hx of ROSEANNE admitted to rehab after completing detox on . Pt is requesting an early discharge today for personal reasons which he got agitated when asked stating he wants to go and follow up with his primary care doctor. pt has primary care with Dr. Katie Smith at [facility]. Pt declined to stay to be started on suboxone here as he requested and wants to leave today. All efforts to dissuade pt only proved irritable and abrasive patient response to treatment offer. Pt was seen by counselor and has been referred to CD aftercare to [facility]. This check writer salesperson spoke with [facility] and pt can receive Suboxone MAT there as well in he he is willing to start treatment. Pertinent Past History: HIV+ HTN Hep C Mood Disorder - Discharge Physical Exam Vital Signs: Vital Signs Temperature 97.7 F 11/03/19 06:05 Pulse Rate 86 11/03/19 06:05 Respiratory Rate 18 11/03/19 06:05 Blood Pressure 150/81 11/03/19 06:05 O2 Sat by Pulse Oximetry (%) Alert o x 3,denie s/h/i nad oob ambulating with steady gait cardiac:s1 s2,rrr lungs:cta,gayle. abdomen:soft,+bs,nt,nd extremities/skin:no edema;skin intact,old,healed scars on both LE. Pertinent Admission Physical Exam Findings: Laboratory Tests 11/02/19 05:53 POC Glucometer 97 Status stable and medically Unchanged - Treatment Discharge Condition: Discharge condition good Hospital Course: Safety maintained CD aftercare referral accepted to [facility] CD program - Medication Discharge Medications: Ambulatory Orders Amlodipine Besylate [Norvasc -] 10 mg PO DAILY 10/30/19 Lisinopril [Prinivil] 10 mg PO BID 10/30/19 Elviteg/Cob/Emtri/Tenof Alafen [Genvoya Tablet] 1 each PO DAILY 11/01/19 - Medication-Assisted Treatment (MAT) Medication-Assisted Treatment (MAT): No - Discharge Instructions Diet, activity, other medical instructions: Diet:MICHAEL Activity:oob ad farzana Other medical instructions:follow up with [facility] program as recommended and scheduled. follow up with your primary care provider Dr. Katie Smith at [facility] within 1 week after discharge. - Diagnosis (1) Cocaine dependence Current Visit: Yes Status: Chronic Qualifiers: Substance use status: uncomplicated Qualified Code(s): F14.20 - Cocaine dependence, uncomplicated (2) Opioid dependence Current Visit: Yes Status: Chronic Qualifiers: Substance use status: uncomplicated Qualified Code(s): F11.20 - Opioid dependence, uncomplicated (3) Nicotine dependence Current Visit: Yes Status: Chronic Qualifiers: Nicotine product type: cigarettes Substance use status: uncomplicated Qualified Code(s): F17.210 - Nicotine dependence, cigarettes, uncomplicated (4) Hepatitis C Current Visit: Yes Status: Resolved Qualifiers: Viral hepatitis chronicity: unspecified (5) HIV positive Current Visit: Yes Status: Chronic (6) HTN (hypertension) Current Visit: Yes Status: Chronic Qualifiers: Hypertension type: essential hypertension Qualified Code(s): I10 - Essential (primary) hypertension - Follow-up Referral Minutes to complete discharge: 20 - AMA Did Patient Leave Against Medical Advice: No Additional Comments: Pt reports he has own meds at home and no need for courtesy Rx. offered pt to call primary care for appointment before exiting today but pt stated he will call when he gets home.
[2019-11-03] MEDS: NICOTINE 14 MG/24 HOURS TOPICAL PATCH TD SCH (09:55)
== END 2019-11-03 09:50 | disposition home or self-care (01) | DRG 772 ==
LOC: YASAS 19:20 → Y5N 19:21
PROVIDERS: ADMIT Allergy & Immunology; ATTEND Allergy & Immunology
PROC: HZ42ZZZ Group Counseling for Substance Abuse Treatment, Cognitive-Behavioral (ICD-10-PCS; principal; 2019-10-30)
DX: F10.20 Alcohol dependence, uncomplicated (principal); F14.20 Cocaine dependence, uncomplicated; F17.210 Nicotine dependence, cigarettes, uncomplicated; F19.280 Other psychoactive substance dependence with psychoactive substance-induced anxiety disorder; F19.24 Other psychoactive substance dependence with psychoactive substance-induced mood disorder; F39 Unspecified mood [affective] disorder; Z21 Asymptomatic human immunodeficiency virus [HIV] infection status; I10 Essential (primary) hypertension; B18.2 Chronic viral hepatitis C
CPT/HCPCS: 82962; Q2036